=== PATIENT | male | born 1965 | race Caucasian/White ===

== ENCOUNTER 2021-09-27 08:35 | Emergency (ER) | payer SELFPAY ==
[~2021-09-27] VITALS: Ht 177 cm; Wt 83.0 kg
[2021-09-27 08:59] LABS: BASOPHILS # (AUTO) 0.1 10^3/uL (0.0-0.1); BASOPHILS % (AUTO) 1 % (0-10); EOSINOPHILS # (AUTO) 0.2 10^3/uL (0.0-0.3); EOSINOPHILS % (AUTO) 2 % (0-10); HEMATOCRIT 35 % (40-54); HEMOGLOBIN 11.9 g/dL (13.3-17.7); LYMPHOCYTES # (AUTO) 2.5 10^3/uL (1.0-4.0); LYMPHOCYTES % (AUTO) 28 % (12-44); MEAN CORPUSCULAR HEMOGLOBIN 32 pg (25-34); MEAN CORPUSCULAR HGB CONC 34 g/dL (32-36); MEAN CORPUSCULAR VOLUME 95 fL (80-99); MEAN PLATELET VOLUME 10.8 fL (9.0-12.2); MONOCYTES # (AUTO) 1.1 10^3/uL (0.0-1.0); MONOCYTES % (AUTO) 12 % (0-12); NEUTROPHILS # (AUTO) 5.2 10^3/uL (1.8-7.8); NEUTROPHILS % (AUTO) 58 % (42-75); PLATELET COUNT 129 10^3/uL (130-400); WHITE BLOOD COUNT 8.9 10^3/uL (4.3-11.0)
[2021-09-27 09:04] LABS: ALBUMIN 3.8 GM/DL (3.2-4.5); POTASSIUM 3.7 MMOL/L (3.6-5.0)
[2021-09-27 09:05] LABS: CALCIUM 9.3 MG/DL (8.5-10.1)
[2021-09-27 09:08] LABS: BILIRUBIN,TOTAL 2.2 MG/DL (0.1-1.0)
[2021-09-27 09:08] LABS: BILIRUBIN,URINE NEGATIVE (NEGATIVE); CLARITY,URINE CLEAR; COLOR,URINE YELLOW; GLUCOSE, URINE (UA) NEGATIVE (NEGATIVE); KETONES,URINE NEGATIVE (NEGATIVE); LEUKOCYTE ESTERASE ,URINE NEGATIVE (NEGATIVE); NITRITE,URINE NEGATIVE (NEGATIVE); PH,URINE 6.5 (5-9); PROTEIN,URINE NEGATIVE (NEGATIVE)
[2021-09-27 09:17] LABS: BACTERIA,URINE NEGATIVE /HPF; WBC,URINE RARE /HPF
[2021-09-27 09:22] LABS: INR 1.2 (0.8-1.4); PROTHROMBIN TIME PATIENT 16.1 SEC (12.2-14.7)
[2021-09-27] MEDS ORDERED: ONDANSETRON 4 MG/2 ML (SDV) Z0FRAN IVP ONE (09:30)
[2021-09-27] MEDS ORDERED: PANTOPRAZOLE 40 MG (PROTONIX) VIAL IV ONE (09:30)
[2021-09-27] MEDS ORDERED: FAMOTIDINE 20MG/2ML IV (PEPCID) IVP ONE (09:30)
[2021-09-27] MEDS ORDERED: LORazepam INJ 2 MG/ML (ATIVAN) VIAL IVP ONE (09:30)
--- NOTE | 2021-09-27 10:00 | ED Abdominal Pain ---
General Chief Complaint: Abdominal/GI Problems Stated Complaint: ABD PAIN,N/V Nursing Triage Note: pt states abd pain for about 6 weeks, vomiting blood started yesterday and black stools started last . small bm yesterday, denies urinary symptoms. sinus drainage started about 6 wks ago also, still have it. Source of Information: Patient Exam Limitations: No Limitations History of Present Illness Date Seen by Provider: September 27, 2021 Allergies and Home Medications Allergies Coded Allergies: No Known Drug Allergies (Unverified , 09/27/21) Patient Home Medication List Omeprazole (Omeprazole) 20 Mg Capsule.dr, 20 MG PO BID Prescribed by: QUINN DURAN on 09/27/21 1002 Ondansetron (Ondansetron Odt) 4 Mg Tab.rapdis, 4 MG SL Q4H PRN for NAUSEA/VOMITING Prescribed by: QUINN DURAN on 09/27/21 1002 Sucralfate (Carafate) 1 Gram Tablet, 1 GM PO QID Prescribed by: QUINN DURAN on 09/27/21 1002 Past [id number]-Tbusad Hx Patient Social History Tobacco Use?: Yes Use of E-Cig and/or Vaping dev: No Substance use?: Yes Substance type: Marijuana Alcohol Use?: Yes Alcohol type: Hard Liquor Alcohol Frequency: Daily Physical Exam Vital Signs Vital Signs - First Documented 09/27/21 08:40 Temp 36.2 Pulse 96 Resp 20 B/P (MAP) 166/91 (116) Pulse Ox 100 O2 Delivery Room Air Capillary Refill : Height/Weight/BMI Height: '" Weight: lbs. oz. kg; 26.00 BMI Method: Progress/Results/Core Measures Results/Orders Lab Results Laboratory Tests Test 09/27/21 08:48 09/27/21 09:00 Range/Units White Blood Count 8.9 4.3-11.0 10^3/uL Red Blood Count 3.69 L 4.30-5.52 10^6/uL Hemoglobin 11.9 L 13.3-17.7 g/dL Hematocrit 35 L 40-54 % Mean Corpuscular Volume 95 80-99 fL Mean Corpuscular Hemoglobin 32 25-34 pg Mean Corpuscular Hemoglobin Concent 34 32-36 g/dL Red Cell Distribution Width 13.0 10.0-14.5 % Platelet Count 129 L 130-400 10^3/uL Mean Platelet Volume 10.8 9.0-12.2 fL Immature Granulocyte % (Auto) 0 % Neutrophils (%) (Auto) 58 42-75 % Lymphocytes (%) (Auto) 28 12-44 % Monocytes (%) (Auto) 12 0-12 % Eosinophils (%) (Auto) 2 0-10 % Basophils (%) (Auto) 1 0-10 % Neutrophils # (Auto) 5.2 1.8-7.8 10^3/uL Lymphocytes # (Auto) 2.5 1.0-4.0 10^3/uL Monocytes # (Auto) 1.1 H 0.0-1.0 10^3/uL Eosinophils # (Auto) 0.2 0.0-0.3 10^3/uL Basophils # (Auto) 0.1 0.0-0.1 10^3/uL Immature Granulocyte # (Auto) 0.0 0.0-0.1 10^3/uL Prothrombin Time 16.1 H 12.2-14.7 SEC INR Comment 1.2 0.8-1.4 Activated Partial Thromboplast Time 40 H 24-35 SEC Sodium Level 134 L 135-145 MMOL/L Potassium Level 3.7 3.6-5.0 MMOL/L Chloride Level 98 98-107 MMOL/L Carbon Dioxide Level 24 21-32 MMOL/L Anion Gap 12 5-14 MMOL/L Blood Urea Nitrogen 11 7-18 MG/DL Creatinine 1.00 0.60-1.30 MG/DL Estimat Glomerular Filtration Rate 89 BUN/Creatinine Ratio 11 Glucose Level 150 H 70-105 MG/DL Calcium Level 9.3 8.5-10.1 MG/DL Corrected Calcium 9.5 8.5-10.1 MG/DL Total Bilirubin 2.2 H 0.1-1.0 MG/DL Aspartate Amino Transf (AST/SGOT) 140 H 5-34 U/L Alanine Aminotransferase (ALT/SGPT) 89 H 0-55 U/L Alkaline Phosphatase 82 40-136 U/L Troponin I < 0.028 <0.028 NG/ML C-Reactive Protein High Sensitivity 1.84 H 0.00-0.50 MG/DL Total Protein 8.0 6.4-8.2 GM/DL Albumin 3.8 3.2-4.5 GM/DL Lipase 58 8-78 U/L Urine Color YELLOW Urine Clarity CLEAR Urine pH 6.5 5-9 Urine Specific [place] 1.015 L 1.016-1.022 Urine Protein NEGATIVE NEGATIVE Urine Glucose (UA) NEGATIVE NEGATIVE Urine Ketones NEGATIVE NEGATIVE Urine Nitrite NEGATIVE NEGATIVE Urine Bilirubin NEGATIVE NEGATIVE Urine Urobilinogen >=8.0 < = 1.0 MG/DL Urine Leukocyte Esterase NEGATIVE NEGATIVE Urine RBC (Auto) NEGATIVE NEGATIVE Urine RBC NONE /HPF Urine WBC RARE /HPF Urine Crystals NONE /LPF Urine Bacteria NEGATIVE /HPF Urine Casts NONE /LPF Urine Mucus NEGATIVE /LPF Urine Culture Indicated NO My Orders Orders - QUINN WHITMORE MD Ua Culture If Indicated (09/27/21 08:50) Ekg Tracing (09/27/21 08:54) Cbc With Automated Diff (09/27/21 08:54) Comprehensive Metabolic Panel (09/27/21 08:54) Hs C Reactive Protein (09/27/21 08:54) Lipase (09/27/21 08:54) Protime With Inr (09/27/21 08:54) Partial Thromboplastin Time (09/27/21 08:54) Fecal Occult Bedside (09/27/21 08:54) Famotidine Injection (Pepcid Injection) (09/27/21 09:30) Ondansetron Injection (Zofran Injectio (09/27/21 09:30) Pantoprazole Injection (Protonix Injecti (09/27/21 09:30) Lorazepam Injection (Ativan Injection) (09/27/21 09:30) Troponin I Erik (09/27/21 09:18) Medications Given in ED Current Medications Medications Dose Ordered Sig/Greta Route Start Time Stop Time Status Last Admin Dose Admin Famotidine 20 mg ONCE ONCE IVP 09/27/21 09:30 09/27/21 09:31 DC 09/27/21 09:29 20 MG Ondansetron HCl 8 mg ONCE ONCE IVP 09/27/21 09:30 09/27/21 09:31 DC 09/27/21 09:29 8 MG Pantoprazole 80 mg ONCE ONCE IV 09/27/21 09:30 09/27/21 09:31 DC 09/27/21 09:29 80 MG Vital Signs/I&O 09/27/21 08:40 Temp 36.2 Pulse 96 Resp 20 B/P (MAP) 166/91 (116) Pulse Ox 100 O2 Delivery Room Air Blood Pressure Mean: 116 Departure Impression Primary Impression: Epigastric pain Additional Impressions: Alcohol dependence Qualified Codes: F10.29 - Alcohol dependence with unspecified alcohol- induced disorder Hematemesis Qualified Codes: K92.0 - Hematemesis Melena Disposition: 01 HOME, SELF-CARE Condition: Improved Departure-Patient Inst. Decision time for Depature: 09:54 Referrals: [facility]/JENNIFER BUCKLEY DO NO,LOCAL PHYSICIAN (PCP) Primary Care Physician Patient Instructions: ALCOHOL AND SUBSTANCE ABUSE, Abdominal Pain, Adult ED, Ulcer and Gastritis Diet Add. Discharge Instructions: Drink plenty of noncarbonated liquids to stay well-hydrated, and gradually advance your diet with small quantities of bland food as tolerated. Use a combination therapy to reduce stomach acid and promote stomach healing. Use omeprazole twice daily and Carafate 4 times daily as prescribed. You may additionally use Tums or a similar product per package instructions to help with abdominal discomfort. Please follow-up with a surgeon as soon as possible. Contact information for Dr. Allen is below. Dr. Allen can perform endoscopy (scoping of your stomach and esophagus) to help best determine what is causing your bleeding and how to treat it. [facility] follow[facility] with [facility] as soon as possible for continued care. In addition to a medical follow-up, please make an appointment for alcohol dependence treatment and counseling. I also strongly advise that you contact the local chapter of AA as soon as possible, preferably today at the conclusion of your ER visit. Please complete the paperwork for financial assistance through [place] [employer] as rapidly as possible. Avoid the following: Eating large meals, eating close to bedtime, caffeine, carbonation, chocolate, citrus fruits and juices, tomato products, mints, alcohol, tobacco, NSAID medications such as ibuprofen or naproxen, spicy foods, fatty/greasy foods, or anything else you know irritates your stomach. Please return to the emergency room if you have worsening symptoms despite following these instructions. All discharge instructions reviewed with patient and/or family. Voiced understanding. Scripts Omeprazole (Omeprazole) 20 Mg Capsule. 20 MG PO BID, #60 CAP Prov: QUINN WHITMORE MD 09/27/21 Ondansetron (Ondansetron Odt) 4 Mg Tab.rapdis 4 MG SL Q4H PRN for NAUSEA/VOMITING, #10 TAB Prov: QUINN WHITMORE MD 09/27/21 Sucralfate (Carafate) 1 Gram Tablet 1 GM PO QID, #120 TAB Crush or dissolve and mix with 5-10 mL water to create slurry. Drink 30 minutes before meals and bedtime. Prov: QUINN WHITMORE MD 09/27/21 Copy Copies To 1: JENNIFER ALLEN DO Copies To 2: RIOS CHURCH DO QUINN WHITMORE MD September 27, 2021 10:00
[2021-09-27] MEDS ORDERED: SUCR1TAB36 PO (10:02)
[2021-09-27] MEDS ORDERED: OMEP20CA18 PO (10:02)
[2021-09-27] MEDS ORDERED: ONDA4TAB11 SL (10:02)
[2021-09-27 10:21] VITALS: BP 123/67
== END 2021-09-27 10:21 | disposition home or self-care (01) ==
LOC: ER 08:39
DX: R10.13 Epigastric pain (principal); F10.29 Alcohol dependence with unspecified alcohol-induced disorder; K92.0 Hematemesis
CPT/HCPCS: 36415; 80053; 81000; 83690; 84484; 85025; 85610; 85730; 86141; 93005